=== PATIENT | male | born 1950 | race Caucasian/White ===

== ENCOUNTER 2021-11-25 11:56 | Inpatient (IN) | payer BC, MEDICARE, MEDICAID, SELFPAY ==
[2021-11-25] VITALS (11 sets, daily range): BP systolic 99–132; BP diastolic 62–121; PULSE 76–98; RESP 12–22; TEMP 36.9–37; O2SAT 93–98; BMI 19.5; BMI 21.5
--- NOTE | 2021-11-25 12:12 | NURSING ---
NO OLD EKGS
--- NOTE | 2021-11-25 12:17 | RAD_ITS ---
EXAM: XR CHEST, 2 VIEWS CLINICAL INDICATION: cough, SOB TECHNIQUE: Frontal and lateral views of the chest. This report was created using [employer] report generation technology. COMPARISON: None. FINDINGS: LUNGS AND PLEURAL SPACES: There is airspace disease in the right lower lobe. The lungs are hyperinflated. No pneumothorax. No effusion. HEART: Unremarkable. Cardiac silhouette not enlarged. MEDIASTINUM: Central airways and mediastinal contour are unremarkable. BONES/JOINTS: Unremarkable. SOFT TISSUES: Unremarkable. RAD/Chest PA and Lateral IMPRESSION: Right lower lobe airspace disease compatible with pneumonia. There is underlying pulmonary hyperinflation. Electronically Signed: Steve Cullen MD at 13:11 EDT ,
--- NOTE | 2021-11-25 12:17 | EKG12_ITS ---
Test Reason : sob Blood Pressure : / mmHG Vent. Rate : 082 BPM Atrial Rate : 082 BPM P-R Int : 152 ms QRS Dur : 078 ms QT Int : 384 ms P-R-T Axes : 052 -15 065 degrees QTc Int : 448 ms Normal sinus rhythm Normal ECG Confirmed by GI MOISE, DOMENIC ([id number]), book editor MARIA INES GARRETT ([id number]) on 11/28/2021 8:59:03 AM Referred By: Confirmed By:DOMENIC ANGELO MD
--- NOTE | 2021-11-25 12:18 | EDS_ITS ---
HPI History of Present Illness Chief Complaint: Shortness of Breath Informant: patient Narrative Narrative: Patient was referred over from Dr. Greenwood's office. Patient states that Saturday morning he started with his symptoms. That is a little over 5 days ago. He has had mild cough, occasional slight sputum production, heaviness feeling on his chest, myalgias, chills but no measured fever. He feels he has heard wheezing in the morning. Nothing really makes his symptoms better or worse. He has no travel surgery immobilization personal or family history of DVT or PE. Patient's father had heart disease but it was not until his 60s. This patient is on no meds for anything. He used to have cholesterol but stopped his meds well over a year ago. He had GERD. He denies history of high blood pressure or diabetes. He smoked for 40 some years but quit 20 years ago. He did start vaping about 8 months ago and just quit Saturday when his symptoms started. [facility] Medical History (Updated 11/25/21 @ 15:[address] Abel Flanagan MD) Hyperlipidemia Home Medications NK 11/25/21 [History Last Taken Unknown] Allergy/AdvReac Type Severity Reaction Status Date / Time No Known Allergies Allergy Verified 11/25/21 11:57 Social History Smoking Status: Never smoker [facility] ED Constitutional Constitutional ED: Reports chills; Denies fever(s) Eyes Eyes: Denies change in vision ENT ENT ED: Reports rhinorrhea; Denies sore throat Cardiovascular Cardiovascular: Reports other Details: Patient states he feels heavy on his chest like his breathing is heavy. But he denies pain pressure tearing or ripping etc. ; Denies palpitations or racing heartbeat Respiratory/Chest Respiratory/Chest: Reports cough, dyspnea, dyspnea on exertion, sputum and other Details: Patient has dyspnea. He also has occasional cough. He did bring up some light rodriguez sputum today. No hemoptysis. No pain with a deep breath. Gastrointestinal Gastrointestinal: Reports nausea and other Details: Patient has felt mild nausea ever since this started. No vomiting diarrhea or constipation or pain ; Denies abdominal pain, constipation, diarrhea, melena or vomiting Genitourinary Genitourinary ED: Denies dysuria Musculoskeletal Musculoskeletal: Reports myalgias Integumentary Denies rash Neurologic Neurologic: Denies headache(s) Endocrine Endocrinology: Denies polydipsia or polyuria Hematologic/Lymphatic Hematologic/Lymphatic: Denies easy bleeding or easy bruising Allergic/Immunologic Allergic/Immunologic ED: Denies urticaria EXAM Physical Exam Const Vital Signs: 11/25/21 11:56 11/25/21 12:20 11/25/21 12:27 Temperature 98.4 F Temperature Source Temporal Pulse Rate 91 93 Respiratory Rate 16 12 Respiratory Effort Normal Respiratory Pattern Normal Blood Pressure 132/121 H Blood Pressure Mean 124 Pulse Ox 94 Oxygen Delivery Method Room Air Room Air 11/25/21 13:35 11/25/21 14:22 Temperature Temperature Source Pulse Rate 76 86 Respiratory Rate 18 18 Respiratory Effort Respiratory Pattern Blood Pressure 117/78 109/73 Blood Pressure Mean 91 85 Pulse Ox 94 93 Oxygen Delivery Method Room Air Positive well nourished and well developed General Appearance ED: well developed and NAD HEENT Reports moist mucous membranes Eyes EOMs intact bilaterally General Eye ED: Negative for scleral icterus Neck no lymphadenopathy Resp Resp Narrative: Patient's work of breathing does look a little bit increased. But he carries on a normal conversation. Saturations are normal. There is no pain with a deep breath. I do not hear wheezing but he does have slightly distant breath sounds. He also has a few coarse breath sounds that are isolated toward the right base posteriorly. Even after deep breaths these continue. Cardio regular rate, regular rhythm and no murmurs GI non-tender, non-distended and no masses Back/Spine no CVA tenderness Extremity normal to inspection General Extremety ED: Negative for edema or tenderness General Extremity: Negative for edema Neuro oriented x3 Psych mental status grossly normal Skin no wounds and skin turgor normal Rashes: no rashes MDM MDM MDM Narrative Medical decision making narrative: Patient has a slight elevation of his white count. Hemoglobin and platelets are normal. Electrolytes show no marked abnormalities. Glucose is just minimally up at 136. Troponin and BNP are normal. X-ray shows right Patient is not hypoxic sitting still. He will fluctuate anywhere from 90 to about 93%. But when he walked him he rapidly dropped to 86% and became dyspneic. His sats came back to normal after resting. With his exertional hypoxia I think he would not do well as an outpatient. I have sent off blood cultures and lactate which are pending. Treated with Rocephin and azithromycin and I discussed the case with the hospitalist. Lab Data Attestation: I reviewed the patient's lab results. Labs: Laboratory Results - last 24 hr 11/25/21 11/25/21 11/25/21 12:15 12:15 12:15 WBC 11.7 H RBC 4.66 Hgb 14.1 Hct 43.1 MCV 92.5 MCH 30.3 MCHC 32.7 RDW Std Deviation 42.5 RDW Coeff of Kylee 12.6 Plt Count 389 MPV 9.7 Immature Gran % (Auto) 0.300 Neut % (Auto) 77.9 H Lymph % (Auto) 13.7 L [place] % (Auto) 5.8 Eos % (Auto) 2.0 Baso % (Auto) 0.3 Absolute Neuts (auto) 9.1 H Absolute Lymphs (auto) 1.60 Nucleated RBC % 0 Sodium 136 Potassium 4.5 Chloride 103 Carbon Dioxide 27.0 Anion Gap 6 BUN 16 Creatinine 1.02 Estim Creat Clear Calc 54.04 Est GFR (MDRD) Af Amer 93 Est GFR (MDRD) Non-Af 77 BUN/Creatinine Ratio 15.7 Glucose 136 H Calcium 9.1 Troponin I High Sens 5 B-Natriuretic Peptide 16.1 Radiography Diagnostic Testing: Clinical Impression(s) from Imaging Studies Chest X-Ray 11/25/21 12:17 IMPRESSION: Right lower lobe airspace disease compatible with pneumonia. There is underlying pulmonary hyperinflation. Electronically Signed: Steve Cullen MD at 13:11 EDT , EKG Initial EKG: Comments: EKG done for chest heaviness and dyspnea read by me shows normal sinus rhythm with overall rate of 82. No ventricular ectopy. No acute ST elevation depression consistent with infarct or ischemia. MN interval QRS duration and QTc is normal. Discharge Plan Dx/Rx/DC Orders Clinical Impression: Community acquired pneumonia, Hypoxia Disposition Disposition: Acute Care Hospital [facility]
[2021-11-25] MEDS: Ipratropium/Albuterol Sulfate 3 ML AMPUL.NEB INHALATION ×2 (12:24→18:55)
[2021-11-25 12:29] LABS: Absolute Neutrophil Count 9.1 X10^3/uL (2.0-7.7); Basophil# 0.03 X10^3/uL; Basophil% 0.3 % (0-1); Eosinophil# 0.24 X10^3/uL; Hematocrit 43.1 % (40-54); Hemoglobin 14.1 g/dL (13.0-16.5); Lymphocyte % 13.7 % (19-41); Mean Corp Hgb Conc 32.7 g/dL (32-36); Mean Corpuscular Hgb 30.3 pg (27.0-32.0); Mean Corpuscular Volume 92.5 fL (80-94); Mean Platelet Vol. 9.7 fl (6.2-12.0); Monocyte# 0.68 X10^3/uL; Monocyte% 5.8 % (0-10); NRBC Flagged by Analyzer 0 % (0-5); Neutrophil # 9.14 X10^3/uL (2.7-7.7); Neutrophil % 77.9 % (47-70); Platelet Count 389 K/mm3 (150-450); RBC Distribution Width CV 12.6 % (11.6-14.6); RBC Distribution Width SD 42.5 fl (35.1-43.9); Red Blood Count 4.66 M/mm3 (4.6-6.2); White Blood Count 11.7 K/mm3 (4.4-11.0)
[2021-11-25 12:42] LABS: Anion Gap 6 (5-15); BUN 16 mg/dL (7-18); BUN/Creat Ratio 15.7 RATIO (10-20); Calcium,Total 9.1 mg/dL (8.5-10.1); Chloride 103 mmol/L (98-107); Creatinine, Serum 1.02 mg/dL (0.70-1.30); EST Glomerular Filtration Rate 77 mL/min (>60); Est Glom Filt Rate - Afr Amer 93 mL/min (>60); Estimated Creatinine Clearance 54.04 ml/min; Glucose 136 mg/dL (74-106); Potassium 4.5 mmol/L (3.5-5.1); Sodium Level 136 mmol/L (136-145); Troponin-I HS 5 pg/mL (3.0-78.0)
[2021-11-25 12:49] LABS: BNP,B-Type NATRIURETIC PEPTIDE 16.1 pg/mL (0-100)
[2021-11-25] MEDS: Ceftriaxone 1 GM/50 ML BAG IV (14:48)
--- NOTE | 2021-11-25 14:58 | NURSING ---
HOSPITALIST FOR DR YOUNG
--- NOTE | 2021-11-25 15:01 | NURSING ---
MED SURG NUAMAH PNEUMONIA, HYPOXIA
--- NOTE | 2021-11-25 15:03 | PCM.HP.STD ---
[facility] - General General Date of Admission: 11/25/21 Date of Service: 11/25/21 Chief Complaint: Shortness of breath, cough?4 days HPI Narrative NUSRAT TODD, is a 71 M who presents with the above. Patient has no significant past medical history, he has been feeling fatigue ongoing for months but worse over the last 4 days. He has had a chronic cough but in the last couple of days, sputum has been dark. He denied any fever or dizziness or palpitations or chest pain. He admits to some chills. Denied any diarrhea. He has been nauseous. He denied any other sick contact. Vitals in the ED were unremarkable except for blood pressure of 132/121, pulse 91, sed rate 16, temperature 98.4 F, oxygen saturation 94% on room air. When he was ambulated in the ED, his O2 sats dropped to 88%. His RBC count is 7.7, hemoglobin 14.1, platelet count 389. CMP has been unremarkable. Bnpep 16.1, Trop 5. Lactic acid 1.5. CXR showed right lower lobe airspace. [facility] Medical History Hyperlipidemia Home Medications NK 11/25/21 [History Last Taken Unknown] Allergy/AdvReac Type Severity Reaction Status Date / Time No Known Allergies Allergy Verified 11/25/21 11:57 Family History (Updated 11/25/21 @ 16:[address] Sofia Preciado MD) Mother No problems noted. Father Heart disease Social History (Updated 11/25/21 @ 16:[address] Sofia Preciado MD) household members: family Smoking Status: Never smoker alcohol intake: never substance use type: does not use ROS ROS Narrative Constitutional: Reports: Malaise, Weakness, Fatigue, chills. Denies: Anorexia, Fever, Night Sweats, Weight Change Eyes: Denies: Blurred vision, Cataracts, Conjunctivae Inflammation, Pain, Redness, Vision Change HEENT: Denies: Difficulty Hearing, Difficulty Swallowing, Head Aches, Hearing Changes, Sinus Congestion, Sinus Drainage Cardiovascular: Denies: Chest Pain, Orthopnea, Palpitations Respiratory: See HPI Gastrointestinal: Denies: Abdominal Pain, Nausea, Vomiting Genitourinary: Denies: Dysuria Musculoskeletal: Denies: Joint Pain, Joint stiffness, Joint swelling, Joint Tenderness Skin: Denies: Rash, Wounds Neurological: Denies: Numbness, Tingling, Focal weakness Vital Signs Vital Signs Vital Signs: 11/25/21 11:56 11/25/21 12:20 11/25/21 12:27 Temperature 98.4 F Temperature Source Temporal Pulse Rate 91 93 Respiratory Rate 16 12 Respiratory Effort Normal Respiratory Pattern Normal Blood Pressure 132/121 H Blood Pressure Mean 124 Pulse Ox 94 Oxygen Delivery Method Room Air Room Air 11/25/21 13:35 11/25/21 14:22 Temperature Temperature Source Pulse Rate 76 86 Respiratory Rate 18 18 Respiratory Effort Respiratory Pattern Blood Pressure 117/78 109/73 Blood Pressure Mean 91 85 Pulse Ox 94 93 Oxygen Delivery Method Room Air Weight Weight: 56.699 kg Body Mass Index (BMI) 19.5 Physical Exam Narrative Physical exam: General: Alert, Oriented x3, Cooperative, appears unwell, on 2 L of oxygen HEENT: Atraumatic Oral: Moist Mucosa Neck: Supple Lungs: Diminished to auscultation, crackles at the right lower lobe Cardiovascular: HS I+II, regular, no murmurs Abdomen: Bowel Sounds Present, Soft, Non Tender Extremities: No edema Skin: No rashes, No breakdown Neurological: Grossly intact Psych/Mental Status: Appropriate Results Lab / Micro Data Result Diagrams: 11/25/21 12:15 11/25/21 12:15 Labs: Laboratory Results - last 24 hr 11/25/21 12:15: WBC 11.7 H, RBC 4.66, Hgb 14.1, Hct 43.1, MCV 92.5, MCH 30.3, MCHC 32.7, RDW Std Deviation 42.5, RDW Coeff of Kylee 12.6, Plt Count 389, MPV 9.7, Immature Gran % (Auto) 0.300, Neut % (Auto) 77.9 H, Lymph % (Auto) 13.7 L, [place] % (Auto) 5.8, Eos % (Auto) 2.0, Baso % (Auto) 0.3, Absolute Neuts (auto) 9.1 H, Absolute Lymphs (auto) 1.60, Nucleated RBC % 0 11/25/21 12:15: Sodium 136, Potassium 4.5, Chloride 103, Carbon Dioxide 27.0, Anion Gap 6, BUN 16, Creatinine 1.02, Estim Creat Clear Calc 54.04, Est GFR (MDRD) Af Amer 93, Est GFR (MDRD) Non-Af 77, BUN/Creatinine Ratio 15.7, Glucose 136 H, Calcium 9.1, Troponin I High Sens 5 11/25/21 12:15: B-Natriuretic Peptide 16.1 Micro: Microbiology 11/25/21 12:15 Nasal Secretion SARS-CoV-2 & FLU Antigen (Rapid) - Final Radiology Impression Chest X-Ray 11/25/21 12:17 IMPRESSION: Right lower lobe airspace disease compatible with pneumonia. There is underlying pulmonary hyperinflation. Electronically Signed: Steve Cullen MD at 13:11 EDT , Assessment & Plan Assessment/Plan (1) Community acquired pneumonia: (2) Hypoxia: PLAN: Plan 1. Acute hypoxia secondary to acute right lower lobe pneumonia, likely secondary to suspected gram positive organism Patient is on 2 L of oxygen, patient appears unwell, in mild respiratory distress, with use of accessory muscles of respiration Chest x-ray shows right lower lobe pneumonia Started on IV ceftriaxone and azithromycin, continue same Check urine Legionella and strep coccal antigen as well as sputum culture Incentive spirometer breathing treatments as needed 2. Hyperlipidemia, not on treatment, will check lipid profiles in a.m. 3. DVT prophylaxis?heparin subcu 4. I discussed and explained in details the various types of CODE STATUS-full code, DNR CCA, DNR CC. Patient chose to be full code Time spent discussing CODE STATUS 16 minutes Charges/Coding Visit Charges Inpatient E&M: 01159 Init Hosp L3 Procedures Hospitalists Procedures: 82344 Advncd Care Plan 30 Min
[2021-11-25 15:10] LABS: Lactic Acid 1.5 mmol/L (0.4-1.9)
[2021-11-25] MEDS: Ondansetron 4 MG/2 ML Vial IV (16:19)
[2021-11-25] MEDS: 0.9% Saline Lock 10 ML Syringe IV (16:19)
[2021-11-25] MEDS: 0.9% Normal Saline 1,000 ML 75 ML IV (16:31)
[2021-11-25 16:50] LABS: Thyroid Stim Hormone (TSH) 0.47 uIU/mL (0.358-3.74)
[2021-11-25 18:10] LABS: Hemoglobin A1c 5.8 % (3.8-5.6)
[2021-11-25] MEDS: Heparin Injection (Vial) 5,000 UNIT/ML VIAL 5000 UNIT SC (21:32)
[2021-11-26] VITALS (9 sets, daily range): BP systolic 98–110; BP diastolic 59–71; PULSE 58–88; RESP 16–20; TEMP 36.6–37.3; O2SAT 93–100
[2021-11-26] MEDS: 0.9% Saline Lock 10 ML Syringe IV ×3 (06:06→21:55)
[2021-11-26 06:28] LABS: Absolute Lymphocyte Count 1.77 X10^3/uL (0.83-4.51); Absolute Neutrophil Count 5.5 X10^3/uL (2.0-7.7); Basophil# 0.03 X10^3/uL; Basophil% 0.4 % (0-1); Eosinophil# 0.18 X10^3/uL; Eosinophils% 2.3 % (0-5); Hematocrit 35.6 % (40-54); Hemoglobin 11.9 g/dL (13.0-16.5); Lymphocyte # 1.77 X10^3/ul (0.83-4.51); Lymphocyte % 22.2 % (19-41); Mean Corp Hgb Conc 33.4 g/dL (32-36); Mean Corpuscular Hgb 30.3 pg (27.0-32.0); Mean Corpuscular Volume 90.6 fL (80-94); Mean Platelet Vol. 10.1 fl (6.2-12.0); Monocyte% 6.3 % (0-10); NRBC Flagged by Analyzer 0 % (0-5); Neutrophil # 5.47 X10^3/uL (2.7-7.7); Neutrophil % 68.5 % (47-70); Platelet Count 292 K/mm3 (150-450); RBC Distribution Width CV 12.5 % (11.6-14.6); RBC Distribution Width SD 41.8 fl (35.1-43.9); Red Blood Count 3.93 M/mm3 (4.6-6.2)
[2021-11-26 07:02] LABS: ALB/GLOB Ratio 0.7 RATIO (0.9-2.4); AST(SGOT) 17 U/L (15-37); Alanine Aminotransfer ALT/SGPT 17 U/L (16-61); Albumin, Serum 2.5 g/dL (3.2-5.0); Alkaline Phosphatase 62 U/L (45-117); Anion Gap 7 (5-15); BUN 11 mg/dL (7-18); BUN/Creat Ratio 13.9 RATIO (10-20); Calcium,Total 8.4 mg/dL (8.5-10.1); Chloride 107 mmol/L (98-107); Cholesterol 123 mg/dL (200); Creatinine, Serum 0.79 mg/dL (0.70-1.30); EST Glomerular Filtration Rate 103 mL/min (>60); Est Glom Filt Rate - Afr Amer 125 mL/min (>60); Estimated Creatinine Clearance 60.73 ml/min; Globulin 3.6 g/dL (2.2-4.2); Glucose 104 mg/dL (74-106); High Density Lipoprotein 38 mg/dL; Potassium 3.9 mmol/L (3.5-5.1); Protein, Total 6.1 g/dL (6.4-8.2); Sodium Level 138 mmol/L (136-145); Triglycerides 69 mg/dL; Very Low Density Lipoprotein 14 mg/dL (5-40)
[2021-11-26] MEDS: Ipratropium/Albuterol Sulfate 3 ML AMPUL.NEB INHALATION ×4 (07:05→19:10)
--- NOTE | 2021-11-26 08:09 | PCM.PN.HOSP ---
Subjective Subjective Follow-up on pneumonia: Patient was seen and examined. He looks improved. He is off oxygen. Objective Data Objective Data Vital Signs: Vital Signs Temp Pulse Resp BP Pulse Ox O2 Del Method O2 Flow Rate 98.6 F 58 L 18 110/64 94 Nasal Cannula 1.5 11/26/21 02:28 11/26/21 07:05 11/26/21 07:05 11/26/21 02:28 11/26/21 07:05 11/26/21 07:05 11/26/21 07:05 Oxygen Flow Rate (L/min) 1.5 Oxygen Delivery Method Nasal Cannula Weight: 62.46 kg Body Mass Index (BMI) 21.5 Intake & Output: Intake and Output for Last 24 Hours 11/24/21 11/25/21 11/26/21 23:59 23:59 23:59 Intake Total 995 / 995 1000 / 1000 Output Total 1250 / 1250 Balance 995 / 445 -250 / -250 Lab / Micro Data Result Diagrams: 11/26/21 05:47 11/26/21 05:47 Labs: Laboratory Results - last 24 hr 11/25/21 12:15: WBC 11.7 H, RBC 4.66, Hgb 14.1, Hct 43.1, MCV 92.5, MCH 30.3, MCHC 32.7, RDW Std Deviation 42.5, RDW Coeff of Kylee 12.6, Plt Count 389, MPV 9.7, Immature Gran % (Auto) 0.300, Neut % (Auto) 77.9 H, Lymph % (Auto) 13.7 L, [place] % (Auto) 5.8, Eos % (Auto) 2.0, Baso % (Auto) 0.3, Absolute Neuts (auto) 9.1 H, Absolute Lymphs (auto) 1.60, Nucleated RBC % 0 11/25/21 12:15: Sodium 136, Potassium 4.5, Chloride 103, Carbon Dioxide 27.0, Anion Gap 6, BUN 16, Creatinine 1.02, Estim Creat Clear Calc 54.04, Est GFR (MDRD) Af Amer 93, Est GFR (MDRD) Non-Af 77, BUN/Creatinine Ratio 15.7, Glucose 136 H, Calcium 9.1, Troponin I High Sens 5 11/25/21 12:15: B-Natriuretic Peptide 16.1 11/25/21 12:15: TSH 0.47 11/25/21 14:42: Lactic Acid 1.5 11/25/21 17:38: Hemoglobin A1c 5.8 H 11/26/21 05:47: WBC 8.0, RBC 3.93 L, Hgb 11.9 L, Hct 35.6 L, MCV 90.6, MCH 30.3, MCHC 33.4, RDW Std Deviation 41.8, RDW Coeff of Kylee 12.5, Plt Count 292, MPV 10.1, Immature Gran % (Auto) 0.300, Neut % (Auto) 68.5, Lymph % (Auto) 22.2, [place] % (Auto) 6.3, Eos % (Auto) 2.3, Baso % (Auto) 0.4, Absolute Neuts (auto) 5.5, Absolute Lymphs (auto) 1.77, Nucleated RBC % 0 11/26/21 05:47: Sodium 138, Potassium 3.9, Chloride 107, Carbon Dioxide 24.0, Anion Gap 7, BUN 11, Creatinine 0.79, Estim Creat Clear Calc 60.73, Est GFR (MDRD) Af Amer 125, Est GFR (MDRD) Non-Af 103, BUN/Creatinine Ratio 13.9, Glucose 104, Calcium 8.4 L, Total Bilirubin 0.30, AST 17, ALT 17, Alkaline Phosphatase 62, Total Protein 6.1 L, Albumin 2.5 L, Globulin 3.6, Albumin/Globulin Ratio 0.7 L, Triglycerides 69, Cholesterol 123, LDL Cholesterol 71, VLDL Cholesterol 14, HDL Cholesterol 38 L Micro: Microbiology 11/25/21 12:15 Nasal Secretion SARS-CoV-2 & FLU Antigen (Rapid) - Final Radiography Diagnostic Testing: Radiology Impression Chest X-Ray 11/25/21 12:17 IMPRESSION: Right lower lobe airspace disease compatible with pneumonia. There is underlying pulmonary hyperinflation. Electronically Signed: Steve Cullen MD at 13:11 EDT , Physical Exam Narrative Physical exam: General: Alert, Oriented x3, Cooperative, appears improved HEENT: Atraumatic Oral: Moist Mucosa Neck: Supple Lungs: Diminished to auscultation, crackles at the right lower lobe++ Cardiovascular: HS I+II, regular, no murmurs Abdomen: Bowel Sounds Present, Soft, Non Tender Extremities: No edema Skin: No rashes, No breakdown Neurological: Grossly intact Psych/Mental Status: Appropriate Assessment & Plan Assessment/Plan (1) Community acquired pneumonia: (2) Hypoxia: PLAN: Plan 1. Acute hypoxia secondary to acute right lower lobe pneumonia, likely secondary to suspected gram positive organism Hypoxia appears resolved; patient has not been ambulated to check for oxygen requirement Clinical exam shows significant crackles in the right lower lobe; patient will be better served by getting 1 more day of antibiotics Chest x-ray shows right lower lobe pneumonia Continue on IV ceftriaxone and azithromycin, continue same Urine Legionella and strep coccal antigen as well as sputum culture are pending Incentive spirometer and breathing treatments as needed 2. Hyperlipidemia, lipid profile has been unremarkable with total cholesterol 133, triglycerides 69, LDL 71, HDL 38 3. DVT prophylaxis?heparin subcu Charges/Coding Visit Charges Inpatient E&M: 92089 Subs Hosp L2
[2021-11-26] MEDS: Heparin Injection (Vial) 5,000 UNIT/ML VIAL 5000 UNIT SC ×2 (09:51→21:53)
[2021-11-26] MEDS: Ceftriaxone 1 GM/50 ML BAG IV (12:06)
[2021-11-27 05:40] LABS: Absolute Lymphocyte Count 1.51 X10^3/uL (0.83-4.51); Absolute Neutrophil Count 5.6 X10^3/uL (2.0-7.7); Basophil# 0.03 X10^3/uL; Basophil% 0.4 % (0-1); Eosinophil# 0.28 X10^3/uL; Eosinophils% 3.5 % (0-5); Hemoglobin 12.1 g/dL (13.0-16.5); Lymphocyte # 1.51 X10^3/ul (0.83-4.51); Lymphocyte % 18.9 % (19-41); Mean Corp Hgb Conc 32.7 g/dL (32-36); Mean Corpuscular Hgb 30.2 pg (27.0-32.0); Mean Corpuscular Volume 92.3 fL (80-94); Mean Platelet Vol. 9.9 fl (6.2-12.0); Monocyte# 0.56 X10^3/uL; NRBC Flagged by Analyzer 0 % (0-5); Neutrophil # 5.59 X10^3/uL (2.7-7.7); Neutrophil % 69.7 % (47-70); Platelet Count 305 K/mm3 (150-450); RBC Distribution Width CV 12.6 % (11.6-14.6); RBC Distribution Width SD 43.2 fl (35.1-43.9); Red Blood Count 4.01 M/mm3 (4.6-6.2)
[2021-11-27 05:52] VITALS: BP 116/73; PULSE 74; RESP 18; TEMP 37.3; O2SAT 93
[2021-11-27 06:13] LABS: ALB/GLOB Ratio 0.7 RATIO (0.9-2.4); AST(SGOT) 17 U/L (15-37); Alanine Aminotransfer ALT/SGPT 20 U/L (16-61); Albumin, Serum 2.6 g/dL (3.2-5.0); Alkaline Phosphatase 64 U/L (45-117); Anion Gap 3 (5-15); BUN 9 mg/dL (7-18); BUN/Creat Ratio 11.5 RATIO (10-20); Calcium,Total 8.6 mg/dL (8.5-10.1); Chloride 106 mmol/L (98-107); Creatinine, Serum 0.78 mg/dL (0.70-1.30); EST Glomerular Filtration Rate 104 mL/min (>60); Est Glom Filt Rate - Afr Amer 126 mL/min (>60); Estimated Creatinine Clearance 60.76 ml/min; Globulin 3.7 g/dL (2.2-4.2); Glucose 102 mg/dL (74-106); Potassium 3.9 mmol/L (3.5-5.1); Protein, Total 6.3 g/dL (6.4-8.2); Sodium Level 138 mmol/L (136-145)
[2021-11-27 07:03] VITALS: PULSE 93; RESP 18; O2SAT 92
[2021-11-27] MEDS: Ipratropium/Albuterol Sulfate 3 ML AMPUL.NEB INHALATION ×2 (07:03→10:56)
--- NOTE | 2021-11-27 07:59 | PN.HOSP_ITS ---
Subjective Subjective Patient is a 71-year-old gentleman who presented with shortness of breath and chills found to have right lower lobe pneumonia Objective Data Objective Data Vital Signs: Vital Signs Temp Pulse Resp BP Pulse Ox O2 Del Method O2 Flow Rate 99.1 F 93 18 116/73 92 Room Air 1.5 11/27/21 05:52 11/27/21 07:03 11/27/21 07:03 11/27/21 05:52 11/27/21 07:03 11/27/21 07:03 11/26/21 07:05 Oxygen Flow Rate (L/min) 1.5 Oxygen Delivery Method Room Air Weight: 62.5 kg Body Mass Index (BMI) 21.5 Intake & Output: Intake and Output for Last 24 Hours 11/25/21 11/26/21 11/27/21 23:59 23:59 23:59 Intake Total 995 / 995 3825 / 3825 Output Total 1250 / 1250 Balance 995 / 445 2575 / 2575 Medical Nutrition Assessment Dietitian: Malnutrition Criteria Met Start: 11/26/21 11:44 Freq: Status: Active Protocol: Document 11/26/21 11:44 RMA (Rec: 11/26/21 11:44 RMA [id number]) Nutrition Malnutrition Evidence of Malnutrition Exists Yes Malnutrition (severe): Social/Behavioral/ Environmental Evidenced By Suboptimal Energy Intake ( Moderate),Weight Loss (Severe) Clinical Problem Acute Disease or Injury Related Malnutrition Etiology Moderate to severe protein- calorie malnutrition in the context of social circumstance related to stress/depression Signs/Symptoms as evidenced by wt loss~10% x past 8 months and oral intake meeting less than 50-75% estimated nutrition needs x past 6-8 months Status Active Problem Recommendation Dietitian Recommendations/Changes Continue regular diet for now and restrict carbohydrates as needed given HgbA1C 5.8%. Will add vanilla magic cup BID w/ lunch and dinner and 240 ml apple ensure clear w/ breakfast. Adjust ONS as needed to prevent further weight loss and optimize intake at meals. Lab / Micro Data Result Diagrams: 11/27/21 05:13 11/27/21 05:13 Labs: Laboratory Results - last 24 hr 11/27/21 05:13: WBC 8.0, RBC 4.01 L, Hgb 12.1 L, Hct 37.0 L, MCV 92.3, MCH 30.2, MCHC 32.7, RDW Std Deviation 43.2, RDW Coeff of Kylee 12.6, Plt Count 305, MPV 9.9, Immature Gran % (Auto) 0.500, Neut % (Auto) 69.7, Lymph % (Auto) 18.9 L, [place] % (Auto) 7.0, Eos % (Auto) 3.5, Baso % (Auto) 0.4, Absolute Neuts (auto) 5.6, Absolute Lymphs (auto) 1.51, Nucleated RBC % 0 11/27/21 05:13: Sodium 138, Potassium 3.9, Chloride 106, Carbon Dioxide 29.0, Anion Gap 3 L, BUN 9, Creatinine 0.78, Estim Creat Clear Calc 60.76, Est GFR (MDRD) Af Amer 126, Est GFR (MDRD) Non-Af 104, BUN/Creatinine Ratio 11.5, Glucose 102, Calcium 8.6, Total Bilirubin 0.20, AST 17, ALT 20, Alkaline Phosphatase 64, Total Protein 6.3 L, Albumin 2.6 L, Globulin 3.7, Albumin/Globulin Ratio 0.7 L Micro: Microbiology 11/25/21 14:45 Blood Culture (Wb) - Anticubital Left Blood Culture - Preliminary No growth in 48 hours. 11/25/21 14:42 Blood Culture (Wb) - Anticubital Right Blood Culture - Preliminary No growth in 48 hours. 11/25/21 18:30 Urine Catheter - Barth Legionella Antigen - Final 11/25/21 18:30 Urine Catheter - Barth Streptococcus pneumoniae Antigen (M - Final 11/25/21 12:15 Nasal Secretion SARS-CoV-2 & FLU Antigen (Rapid) - Final Physical Exam Narrative GENERAL: cooperative HEENT: Atraumatic; EYES; Anicteric, Normal Conjunctiva NECK; supple, normal thyroid, RESPIRATORY: Diminished to auscultation CARDIOVASCULAR: Regular S1 S2, GI: soft, normoactive bowel sounds, : No Renal angle tenderness; EXTREMITIES: No edema, no clubbing, MUSCULOSKELETAL: no muscle wasting NEURO: Awake; no lateralizing signs. SKIN: No Rash PSYCH; Flat affect Assessment & Plan Assessment/Plan (1) Community acquired pneumonia: (2) Hypoxia: PLAN: Plan Patient is a 71-year-old gentleman who presented with shortness of breath and chills found to have right lower lobe pneumonia 1. Pneumonia - Suspected to be secondary to streptococcal pneumonia, Blood and sputum cultures sent. Patient placed on Rocephin and Zithromax and placed on oxygen titrated to keep Pulse Ox greater than 90 2. Dyslipidemia -Patient is on statin therapy, continued at home dose 3. DVT prophylaxis ? SC heparin Charges/Coding Visit Charges Inpatient E&M: 87311 Subs Hosp L2
[2021-11-27 08:00] VITALS: BP 118/77; PULSE 84; RESP 16; TEMP 36.8; O2SAT 93
--- NOTE | 2021-11-27 09:09 | DS.PCM_ITS ---
Providers Date of Admission: 11/25/21 Primary Care Physician: Dr. Darlyn Greenwood MD Reason For Visit: PNEUMONIA Diagnosis Discharge Diagnosis (1) Community acquired pneumonia: Status: Acute Code(s): J18.9 - Pneumonia, unspecified organism (2) Hypoxia: Status: Acute Code(s): R09.02 - Hypoxemia Plan Patient is a 71-year-old gentleman who presented with shortness of breath and chills found to have right lower lobe pneumonia 1. Pneumonia - Suspected to be secondary to streptococcal pneumonia, Blood and sputum cultures sent. Patient placed on Rocephin and Zithromax and placed on oxygen titrated to keep Pulse Ox greater than 90 2. Dyslipidemia -Patient is on statin therapy, continued at home dose 3. DVT prophylaxis ? SC heparin Medications at Discharge Home Medications albuterol sulfate 90 mcg/actuation aerosol inhaler 2 puff inhalation Q6H PRN shortness of breath or wheezing #8.5 grams 11/27/21 azithromycin 500 mg tablet (Zithromax) 500 mg PO DAILY 3 days #3 tabs 11/27/21 cefdinir 300 mg capsule 300 mg PO BID #10 caps 11/27/21 Hospital Course Summary of Care Provided Minutes Spent on Discharge: 35 Hospital Course: Patient is a 71-year-old gentleman who presented with shortness of breath and chills found to have right lower lobe pneumonia 1.? Pneumonia - Suspected to be secondary to streptococcal pneumonia,? Blood and sputum cultures sent.? Patient placed on Rocephin and Zithromax and placed on oxygen titrated to keep Pulse Ox greater than 90 2.? Dyslipidemia -Patient is on statin therapy, continued at home dose 3.? DVT prophylaxis ? SC heparin Physical Exam Narrative GENERAL: cooperative HEENT: Atraumatic; EYES; Anicteric, Normal Conjunctiva NECK; supple, normal thyroid, RESPIRATORY: Diminished to auscultation CARDIOVASCULAR: Regular S1 S2, GI: soft, normoactive bowel sounds, : No Renal angle tenderness; EXTREMITIES: No edema, no clubbing, MUSCULOSKELETAL: no muscle wasting NEURO: Awake; no lateralizing signs. SKIN: No Rash PSYCH; Flat affect Medical Records Data Medical Nutrition Assessment Dietitian: Malnutrition Criteria Met Start: 11/26/21 11:44 Freq: Status: Active Protocol: Document 11/26/21 11:44 RMA (Rec: 11/26/21 11:44 RMA [id number]) Nutrition Malnutrition Evidence of Malnutrition Exists Yes Malnutrition (severe): Social/Behavioral/ Environmental Evidenced By Suboptimal Energy Intake ( Moderate),Weight Loss (Severe) Clinical Problem Acute Disease or Injury Related Malnutrition Etiology Moderate to severe protein- calorie malnutrition in the context of social circumstance related to stress/depression Signs/Symptoms as evidenced by wt loss~10% x past 8 months and oral intake meeting less than 50-75% estimated nutrition needs x past 6-8 months Status Active Problem Recommendation Dietitian Recommendations/Changes Continue regular diet for now and restrict carbohydrates as needed given HgbA1C 5.8%. Will add vanilla magic cup BID w/ lunch and dinner and 240 ml apple ensure clear w/ breakfast. Adjust ONS as needed to prevent further weight loss and optimize intake at meals. Weight / BMI Weight Weight: 62.5 kg Body Mass Index (BMI) 21.5 ABG / Lab / Microbiology Data Result Diagrams: 11/27/21 05:13 11/27/21 05:13 Laboratory: Laboratory Results - last 24 hr 11/27/21 05:13: WBC 8.0, RBC 4.01 L, Hgb 12.1 L, Hct 37.0 L, MCV 92.3, MCH 30.2, MCHC 32.7, RDW Std Deviation 43.2, RDW Coeff of Kylee 12.6, Plt Count 305, MPV 9.9, Immature Gran % (Auto) 0.500, Neut % (Auto) 69.7, Lymph % (Auto) 18.9 L, [place] % (Auto) 7.0, Eos % (Auto) 3.5, Baso % (Auto) 0.4, Absolute Neuts (auto) 5.6, Absolute Lymphs (auto) 1.51, Nucleated RBC % 0 11/27/21 05:13: Sodium 138, Potassium 3.9, Chloride 106, Carbon Dioxide 29.0, Anion Gap 3 L, BUN 9, Creatinine 0.78, Estim Creat Clear Calc 60.76, Est GFR (MDRD) Af Amer 126, Est GFR (MDRD) Non-Af 104, BUN/Creatinine Ratio 11.5, Glucose 102, Calcium 8.6, Total Bilirubin 0.20, AST 17, ALT 20, Alkaline Olivia sphatase 64, Total Protein 6.3 L, Albumin 2.6 L, Globulin 3.7, Albumin/Globulin Ratio 0.7 L Microbiology: Microbiology 11/25/21 14:45 Blood Culture (Wb) - Anticubital Left Blood Culture - Preliminary No growth in 48 hours. 11/25/21 14:42 Blood Culture (Wb) - Anticubital Right Blood Culture - Preliminary No growth in 48 hours. 11/25/21 18:30 Urine Catheter - Barth Legionella Antigen - Final 11/25/21 18:30 Urine Catheter - Barth Streptococcus pneumoniae Antigen (M - Final 11/25/21 12:15 Nasal Secretion SARS-CoV-2 & FLU Antigen (Rapid) - Final D/C Instructions Discharge Diet: No restrictions Discharge Activity: Return to Normal Activity Call your doctor if you observe: Fever of 101 or Higher, Shortness of breath, Fainting spells and Chest pain Meaningful Use Info Meaningful Use Diagnoses (Choose all that apply): None applicable Discharge Plan Admission Admit Date/Time: 11/25/21 14:59 Attending Provider: Lloyd Belle Primary Care Provider: Darlyn Greenwood Consulting Providers: Sofia Preciado Discharge Orders/Prescriptions Prescriptions: New cefdinir 300 mg capsule 300 mg PO BID Qty: 10 0RF azithromycin [Zithromax] 500 mg tablet 500 mg PO DAILY 3 Days Qty: 3 0RF albuterol sulfate 90 mcg/actuation HFA aerosol inhaler 2 puff inhalation Q6H PRN (Reason: shortness of breath or wheezing) Qty: 8.5 0RF Referrals / Follow Up: Darlyn Greenwood MD [Primary Care Provider] - Within 2 Weeks Disposition Disposition (needs filled in before D/C Order can be placed): Home, Self Care Charges/Coding Visit Charges Inpatient E&M: 18644 Disch Hosp
[2021-11-27] MEDS: Ceftriaxone 1 GM/50 ML BAG IV (09:49)
[2021-11-27] MEDS: 0.9% Saline Lock 10 ML Syringe IV (09:49)
--- NOTE | 2021-11-27 10:35 | CASEMGMT ---
RN [facility] Face to Face with patient for initial transition planning/care coordination assessment. RN CM introduced self and role at [facility]. Patient lying in bed, alert and oriented. Patient willing to participate in assessment and is able to answer all questions appropriately. Care providers, pharmacy, and demographics verified. Patient wishes to discharge home, denies need for home health at this time. Patient states he has no further needs or concerns at this time. CM to follow for discharge planning needs that may arise. PCP: Timo Specialists: none Preferred Pharmacy: [facility] Insurance: [employer] Prescription Benefit: yes Living Will/HPOA: none LNOK: son Living Arrangements: Patient lives with son in a single story home with 1 step and railing to enter the home. Patient states he is independent at home. Transportation: self, son DME/HHC: Patient states he has shower chair and grab bars at home. No previous HHC or SNF. Disposition Plan: Patient to discharge home with family support and follow-up plans in place. Kortney MIRANDA, RN, CM
[2021-11-27 10:56] VITALS: PULSE 85; RESP 18; O2SAT 92
--- NOTE | 2021-11-27 12:10 | PHA.DC.MC ---
Pharmacy Service has performed discharge medication reconciliation and counseling for this patient. 1. AZITHROMYCIN 500MG PO DAILY X 3 DAYS 2. CEFDINIR 300MG PO BID X 5 DAYS 3. ALBUTEROL INHALER 2PUFFS Q6H PRN SOB/WHEEZING The patient's discharge medication list was reviewed for discrepancies and discrepancies were resolved. Home Medications albuterol sulfate 90 mcg/actuation aerosol inhaler 2 puff inhalation Q6H PRN shortness of breath or wheezing #8.5 grams 11/27/21 azithromycin 500 mg tablet (Zithromax) 500 mg PO DAILY 3 days #3 tabs 11/27/21 cefdinir 300 mg capsule 300 mg PO BID #10 caps 11/27/21 The patient was counseled on the following discharge medications and changes in medications for homegoing were reviewed. The Reason for Use, instructions for use, and potential side effects were reviewed for all new medications. The patient's questions regarding all of their medications were answered. The patient was able to verbally demonstrate an understanding of their discharge medications.
== END 2021-11-27 12:24 | disposition home or self-care (01) | DRG 194 ==
LOC: ED 15:02 → MS3 15:20
PROVIDERS: Admitting Provider Internal Medicine; Emergency Provider Emergency Medicine; PCP Internal Medicine; Visit Provider Internal Medicine
DX: J15.4 Pneumonia due to other streptococci (principal); E44.0 Moderate protein-calorie malnutrition; E78.5 Hyperlipidemia, unspecified; R09.02 Hypoxemia; Z68.21 Body mass index [BMI] 21.0-21.9, adult; Z79.899 Other long term (current) drug therapy; Z87.891 Personal history of nicotine dependence
CPT/HCPCS: 36415; 71046; 80048; 80053; 80061; 83036; 83605; 83880; 84443; 84484; 85025; 87040; 87070; 87205; 87428; 87449; 93005; 94640; 94762; 97802; 99251; 99285; J7030; A4216; G0463; J2405

== ENCOUNTER 2022-06-01 07:43 | Emergency (ER) | payer BC, MEDICARE, MEDICAID, SELFPAY ==
[2022-06-01 07:44] VITALS: BP 135/78; PULSE 82; RESP 17; TEMP 35.9; O2SAT 97; BMI 21.5
--- NOTE | 2022-06-01 08:05 | ED.VIS.DYS ---
HPI History of Present Illness Chief Complaint: Shortness of Breath Informant: patient Onset/Context/Timing Onset: Days (3) Context: gradual Timing: Continuous Quality: Positive for Dyspnea on exertion Worsened by: Exertion Relieved by: Nothing Associated Symptoms cough, rhinorrhea, sore throat and yellow sputum; Negative for ear pain, fever, chills or sweats Narrative Narrative: Patient presents with shortness of breath that has been getting worse over the last 3 days. Patient states his breathing is worse with exertion. Patient states nothing makes it better. Patient states he has been coughing up some yellow sputum. Patient states this is similar to the symptoms he had when he had pneumonia. Patient also admits to a sore throat and rhinorrhea. Patient admits to some pain in his chest but only with coughing. Patient denies any fevers or chills. Patient states he took his temperature this morning and it was 99.1. PE Risk Factors: Negative for Cancer, OCP + Smoking + > 35, Prior DVT or PE, Recent immobilization, Recent surgery or Recent travel [facility] Medical History (Updated 06/01/22 @ 09:[address] Issac Knight DO) Hyperlipidemia Home Medications albuterol sulfate 90 mcg/actuation aerosol inhaler 2 puff inhalation Q6H PRN shortness of breath or wheezing #8.5 grams 11/27/21 [Rx Last Taken Unknown] Allergy/AdvReac Type Severity Reaction Status Date / Time No Known Allergies Allergy Verified 06/01/22 07:43 Family History (Updated 11/25/21 @ 16:[address] Sofia Preciado MD) Mother No problems noted. Father Heart disease Surgical History Hx of shoulder surgery Social History (Updated 06/01/22 @ 08:[address] Issac Knight DO) household members: family Smoking Status: Former smoker alcohol intake: never substance use type: does not use ROS ROS ED Constitutional Constitutional ED: Denies chills or fever(s) Eyes Eyes: Denies blurry vision or change in vision ENT ENT ED: Reports rhinorrhea and sore throat Cardiovascular Cardiovascular: Reports chest pain; Denies palpitations Respiratory/Chest Respiratory/Chest: Reports cough and dyspnea Gastrointestinal Gastrointestinal: Denies nausea or vomiting Genitourinary Genitourinary ED: Denies dysuria or hematuria Musculoskeletal Musculoskeletal: Reports back pain and neck pain Integumentary Denies abscess or rash Neurologic Neurologic: Reports headache(s); Denies weakness Allergic/Immunologic Allergic/Immunologic ED: Denies mouth swelling or urticaria EXAM Physical Exam Const Vital Signs: 06/01/22 07:44 06/01/22 07:57 06/01/22 08:31 Temperature 96.6 F L Temperature Source Temporal Pulse Rate 82 82 Respiratory Rate 17 18 Respiratory Effort Short of Breath Respiratory Depth Normal Respiratory Pattern Normal Blood Pressure 135/78 H Blood Pressure Mean 97 Pulse Ox 97 Oxygen Delivery Method Room Air Room Air 06/01/22 08:31 Temperature Temperature Source Pulse Rate Respiratory Rate 18 Respiratory Effort Normal Respiratory Depth Respiratory Pattern Blood Pressure Blood Pressure Mean Pulse Ox 99 Oxygen Delivery Method Room Air Positive well nourished and well developed General Appearance ED: well developed HEENT Reports moist mucous membranes Neck supple and no JVD Resp normal respiratory effort Auscultation: diminished lung sounds diffuse Cardio regular rate and regular rhythm GI normal to inspection, nondistended, normoactive bowel sounds and non-tender Palpation: soft Extremity normal to inspection General Extremety ED: Negative for edema or tenderness General Extremity: Negative for edema Neuro oriented x3, CN's II-XII intact bilaterally and no sensory deficits noted Sensorium / Orientation: alert Motor Exam: strength 5/5 throughout Psych mental status grossly normal Skin no rashes or lesions noted MDM MDM MDM Narrative Medical decision making narrative: PA and lateral chest x-ray was obtained. There are 2 views. On my interpretation, lung elias are hyperinflated but clear. There is normal cardiac silhouette. Bony thorax is normal. There is no acute process noted. Radiologist also interpreted the x-ray and agrees. CBC was obtained and was reviewed. There is no acute abnormality noted. Comprehensive metabolic profile was obtained and was reviewed. Glucose was 108. The remainder was within normal limits. COVID-19 rapid antigen was obtained and was negative. Influenza A and influenza B rapid antigens were obtained and were negative. Patient was given a DuoNeb aerosol here. Patient is feeling better on reevaluation. Patient states he has inhalers at home. Patient was instructed to use these as needed. Patient does not need a prescription for refill on his inhaler. Patient was instructed to follow-up with his primary care physician in 5 to 7 days. Patient understood and was agreeable with the plan. All questions were answered. Lab Data Attestation: I reviewed the patient's lab results. Labs: Laboratory Results - last 24 hr 06/01/22 06/01/22 08:10 08:18 WBC 11.0 RBC 4.62 Hgb 14.1 Hct 42.0 MCV 90.9 MCH 30.5 MCHC 33.6 RDW Std Deviation 45.0 H RDW Coeff of Kylee 13.4 Plt Count 242 MPV 10.0 Immature Gran % (Auto) 0.300 Neut % (Auto) 78.5 H Lymph % (Auto) 13.7 L [place] % (Auto) 5.4 Eos % (Auto) 1.8 Baso % (Auto) 0.3 Absolute Neuts (auto) 8.6 H Absolute Lymphs (auto) 1.50 Nucleated RBC % 0 Sodium 138 Potassium 4.2 Chloride 105 Carbon Dioxide 30.0 Anion Gap 3 L BUN 10 Creatinine 1.02 Estim Creat Clear Calc 56.08 Est GFR (MDRD) Af Amer 93 Est GFR (MDRD) Non-Af 77 BUN/Creatinine Ratio 9.8 L Glucose 108 H Calcium 8.7 Total Bilirubin 0.70 AST 18 ALT 19 Alkaline Phosphatase 70 Total Protein 7.2 Albumin 3.5 Globulin 3.7 Albumin/Globulin Ratio 0.9 Radiography Chest X-Ray - ED: 2 View, Read by ED Physician, Read by Radiologist and No Acute Disease Diagnostic Testing: Clinical Impression(s) from Imaging Studies Chest X-Ray 06/01/22 08:40 IMPRESSION: Hyperinflation. The lungs are clear. Electronically Signed: Ghanshyam Merchant MD at 8:51 EST , Discharge Plan Triage Chief Complaint: Shortness of Breath ED Provider: Issac Knight Dx/Rx/DC Orders Clinical Impression: Viral upper respiratory tract infection, COPD (chronic obstructive pulmonary disease) Instructions: ED COPD Flare, ED URI, Viral, No Abx (Adult) Prescriptions: No Action albuterol sulfate 90 mcg/actuation HFA aerosol inhaler 2 puff inhalation Q6H PRN (Reason: shortness of breath or wheezing) Qty: 8.5 0RF Primary Care Provider: Darlyn Greenwood Referrals: Darlyn Greenwood MD [Primary Care Provider] - 5-7 Days Disposition Disposition: Home, Self Care
[2022-06-01 08:23] LABS: Absolute Neutrophil Count 8.6 X10^3/uL (2.0-7.7); Basophil# 0.03 X10^3/uL; Basophil% 0.3 % (0-1); Eosinophils% 1.8 % (0-5); Hemoglobin 14.1 g/dL (13.0-16.5); Lymphocyte % 13.7 % (19-41); Mean Corp Hgb Conc 33.6 g/dL (32-36); Mean Corpuscular Hgb 30.5 pg (27.0-32.0); Mean Corpuscular Volume 90.9 fL (80-94); Monocyte# 0.59 X10^3/uL; Monocyte% 5.4 % (0-10); NRBC Flagged by Analyzer 0 % (0-5); Neutrophil # 8.63 X10^3/uL (2.7-7.7); Neutrophil % 78.5 % (47-70); Platelet Count 242 K/mm3 (150-450); RBC Distribution Width CV 13.4 % (11.6-14.6); Red Blood Count 4.62 M/mm3 (4.6-6.2)
[2022-06-01] MEDS: Ipratropium/Albuterol Sulfate 3 ML AMPUL.NEB INHALATION (08:28)
[2022-06-01 08:31] VITALS: PULSE 82; RESP 18; O2SAT 99
[2022-06-01 08:38] LABS: ALB/GLOB Ratio 0.9 RATIO (0.9-2.4); AST(SGOT) 18 U/L (15-37); Alanine Aminotransfer ALT/SGPT 19 U/L (16-61); Albumin, Serum 3.5 g/dL (3.2-5.0); Alkaline Phosphatase 70 U/L (45-117); Anion Gap 3 (5-15); BUN 10 mg/dL (7-18); BUN/Creat Ratio 9.8 RATIO (10-20); Calcium,Total 8.7 mg/dL (8.5-10.1); Chloride 105 mmol/L (98-107); Creatinine, Serum 1.02 mg/dL (0.70-1.30); EST Glomerular Filtration Rate 77 mL/min (>60); Est Glom Filt Rate - Afr Amer 93 mL/min (>60); Estimated Creatinine Clearance 56.08 ml/min; Globulin 3.7 g/dL (2.2-4.2); Glucose 108 mg/dL (74-106); Potassium 4.2 mmol/L (3.5-5.1); Protein, Total 7.2 g/dL (6.4-8.2); Sodium Level 138 mmol/L (136-145)
--- NOTE | 2022-06-01 08:40 | RAD_ITS ---
STUDY: X-RAY CHEST REASON FOR EXAM: Male, 71 years old. Dyspnea TECHNIQUE: PA and lateral views of the chest. COMPARISON: Comparison is made with prior study dated 11/25/2021. FINDINGS: There is hyperinflation of the lungs consistent with chronic obstructive lung disease (COPD). The previously seen infiltrate in the right lower lobe has cleared. There is no demonstrated pleural abnormality. Normal size heart. Normal mediastinum and radha. Normal visualized pulmonary arteries. There is atherosclerotic tortuosity of the aortic arch and descending thoracic aorta. There are diffuse degenerative changes of the visualized thoracic spine. There is degenerative osteoarthritis of the bilateral shoulders. There is no demonstrated abnormality of the visualized soft tissue structures of the upper abdomen. RAD/Chest PA and Lateral IMPRESSION: Hyperinflation. The lungs are clear. Electronically Signed: Ghanshyam Merchant MD at 8:51 EST ,
== END 2022-06-01 10:04 | disposition home or self-care (01) ==
PROVIDERS: Emergency Provider Emergency Medicine; PCP Internal Medicine; Visit Provider Emergency Medicine
DX: J02.9 Acute pharyngitis, unspecified (principal); J44.9 Chronic obstructive pulmonary disease, unspecified; E78.5 Hyperlipidemia, unspecified; Z87.891 Personal history of nicotine dependence; R06.02 Shortness of breath
CPT/HCPCS: 71046; 80053; 85025; 87428; 94640; 99252; 99283; A4216; G0463

== ENCOUNTER 2024-01-17 14:10 | Emergency (ER) | payer MEDICARE, OTHER, SELFPAY ==
[2024-01-17] VITALS (7 sets, daily range): BP systolic 115–136; BP diastolic 74–98; PULSE 63–90; RESP 12–25; TEMP 36.8–37.2; O2SAT 94–98; BMI 19.5
--- NOTE | 2024-01-17 14:56 | EKG12_ITS ---
Test Reason : CP Blood Pressure : / mmHG Vent. Rate : 074 BPM Atrial Rate : 074 BPM P-R Int : 162 ms QRS Dur : 082 ms QT Int : 394 ms P-R-T Axes : 068 -38 063 degrees QTc Int : 437 ms Sinus rhythm with Premature atrial complexes Left axis deviation Abnormal ECG Confirmed by SANJUANA LESLIE ([id number]), news assignment editor LUKAS RUIZ ([id number]) on 01/21/2024 8:24:58 AM Referred By: Confirmed By:SANJUANA LESLIE
--- NOTE | 2024-01-17 15:00 | RAD_ITS ---
STUDY: X-RAY CHEST REASON FOR EXAM: Male, 73 years old. Chest pain TECHNIQUE: Single AP portable view of the chest. COMPARISON: Comparison is made with prior study dated June 01, 2012. FINDINGS: EKG electrodes are seen. Hyperinflation. The lungs are clear. There is no demonstrated pleural abnormality. Normal size heart. Normal mediastinum and radha. Normal visualized pulmonary arteries. There is atherosclerotic tortuosity of the aortic arch and descending thoracic aorta. Normal visualized thoracic spine. Normal visualized ribs, clavicles, and shoulders. There is no demonstrated abnormality of the visualized soft tissue structures of the upper abdomen. RAD/Chest 1 View (Portable) IMPRESSION: Hyperinflation. The lungs are clear. Electronically Signed: Ghanshyam Merchant MD at 15:11 EDT ,
[2024-01-17 15:08] LABS: Absolute Lymphocyte Count 1.43 X10^3/uL (0.83-4.51); Basophil# 0.02 X10^3/uL; Basophil% 0.3 % (0-1); Eosinophils% 1.6 % (0-5); Hematocrit 44.2 % (40-54); Hemoglobin 14.8 g/dL (13.0-16.5); Lymphocyte # 1.43 X10^3/ul (0.83-4.51); Lymphocyte % 23.3 % (19-41); Mean Corp Hgb Conc 33.5 g/dL (32-36); Mean Corpuscular Hgb 30.3 pg (27.0-32.0); Mean Corpuscular Volume 90.6 fL (80-94); Mean Platelet Vol. 10.4 fl (6.2-12.0); Monocyte# 0.61 X10^3/uL; NRBC Flagged by Analyzer 0 % (0-5); Neutrophil # 3.95 X10^3/uL (2.7-7.7); Neutrophil % 64.5 % (47-70); Platelet Count 180 K/mm3 (150-450); RBC Distribution Width CV 13.2 % (11.6-14.6); RBC Distribution Width SD 44.6 fl (35.1-43.9); Red Blood Count 4.88 M/mm3 (4.6-6.2); White Blood Count 6.1 K/mm3 (4.4-11.0)
[2024-01-17 15:24] LABS: Anion Gap 3 (5-15); BUN 14 mg/dL (7-18); BUN/Creat Ratio 14.2 RATIO (10-20); Chloride 102 mmol/L (98-107); Creatinine, Serum 0.99 mg/dL (0.70-1.30); EST Glomerular Filtration Rate 79 mL/min (>60); Est Glom Filt Rate - Afr Amer 96 mL/min (>60); Glucose 100 mg/dL (74-106); Potassium 4.2 mmol/L (3.5-5.1); Sodium Level 135 mmol/L (136-145); Troponin-I HS (w/2H Reflex) 4 pg/mL (3.0-78.0)
--- NOTE | 2024-01-17 15:28 | EDS_ITS ---
HPI History of Present Illness Chief Complaint: Chest Pain Detail of Chief Complaint: Chest pain and shortness of breath Informant: patient Narrative Narrative: Patient presents the emergency department with complaint of not feeling well x 3 days. Patient states that yesterday he developed a fever. He has been coughing. He has been having headaches. Yesterday developed some chest discomfort that radiated through to his back. Patient unsure about sick contacts. He was seen by his primary care physician today and referred to the ER for evaluation. Has have history of pneumonia in the past. He is bringing up some sputum as yellow. Patient does vape. Does not drink alcohol and denies any illicit drug use. Patient denies recent travel or surgery. No history of PE or DVT. [facility] Medical History (Updated 01/17/24 @ 18:[address] Wojciech Lyman, DO) Hyperlipidemia Home Medications ?Medication ?Instructions ?Recorded ?Last Taken ?Type albuterol sulfate 90 mcg/actuation 2 puff inhalation Q6H PRN 11/27/21 Unknown Rx aerosol inhaler shortness of breath or wheezing #8.5 grams Allergy/AdvReac Type Severity Reaction Status Date / Time No Known Allergies Allergy Verified 01/17/24 14:10 Family History (Updated 11/25/21 @ 16:[address] Sofia Preciado MD) Mother No problems noted. Father Heart disease Surgical History Hx of shoulder surgery Social History (Updated 06/01/22 @ 08:[address] Issac Knight DO) household members: family Smoking Status: Former smoker alcohol intake: never substance use type: does not use ROS ROS ED Review of Systems ROS Unobtainable: other Constitutional Constitutional ED: Reports fever(s) and lethargy; Denies chills, sweats or weight loss Eyes Eyes: Denies blurry vision, change in vision or diplopia ENT ENT ED: Denies rhinorrhea or sore throat Cardiovascular Cardiovascular: Reports chest pain; Denies orthopnea or racing heartbeat Respiratory/Chest Respiratory/Chest: Reports cough, dyspnea and dyspnea on exertion; Denies orthopnea or sputum Gastrointestinal Gastrointestinal: Denies abdominal pain, diarrhea, nausea or vomiting Genitourinary Genitourinary ED: Denies dysuria, hematuria or urinary frequency Musculoskeletal Musculoskeletal: Reports myalgias; Denies arthralgias, back pain or neck pain Integumentary Denies abscess, Abrasions or rash Neurologic Neurologic: Reports headache(s); Denies weakness Psychiatric Psychiatric: Denies anxiety, depression or suicidal thoughts Endocrine Endocrinology: Denies polydipsia, polyphagia or polyuria Hematologic/Lymphatic Hematologic/Lymphatic: Denies easy bleeding, easy bruising or lymphadenopathy Allergic/Immunologic Allergic/Immunologic ED: Denies mouth swelling, tongue swelling or urticaria EXAM Physical Exam Const Vital Signs: 01/17/24 14:10 01/17/24 14:10 01/17/24 14:48 Temperature 99 F 99 F Temperature Source Temporal Temporal Pulse Rate 90 90 Respiratory Rate 25 H 25 H Respiratory Effort Short of Breath Blood Pressure 115/98 H 115/98 H Blood Pressure Mean 103 103 Pulse Ox 98 98 Oxygen Delivery Method Room Air 01/17/24 14:59 01/17/24 15:12 Temperature 98.5 F Temperature Source Oral Pulse Rate 70 Respiratory Rate 18 Respiratory Effort Blood Pressure 117/79 Blood Pressure Mean 91 Pulse Ox 94 95 Oxygen Delivery Method Room Air Room Air Positive well nourished and well developed General Appearance ED: well developed and NAD HEENT Reports TM's clear and moist mucous membranes normocephalic and atraumatic; Negative for trauma or tenderness Tympanic Membrane ED: Yes TM's clear Eyes PERRL and EOMs intact bilaterally General Eye ED: Negative for pale conjunctiva or scleral icterus Neck no lymphadenopathy, supple and no JVD General: Negative for tenderness Chest Wall inspection of chest normal and palpation of chest normal Chest: Negative for tenderness Resp normal respiratory effort and clear to auscultation bilaterally Effort and Inspection: Negative for respiratory distress or pain with movement Auscultation: Negative for rhonchi, wheezes or diminished lung sounds Cardio regular rate, regular rhythm, S1 normal heart sound, S2 normal heart sound and no murmurs Peripheral Pulses: pulses 2+ throughout GI normal to inspection, nondistended, normoactive bowel sounds, soft to palpation, non-tender, non-distended and no masses Back/Spine no CVA tenderness and no thoracic nor lumbar tenderness Extremity normal to inspection General Extremety ED: Negative for edema General Extremity: Negative for edema Neuro oriented x3, CN's II-XII intact bilaterally, no sensory deficits noted and gait normal Sensorium / Orientation: awake, alert, oriented to person, oriented to place and oriented to time Motor Exam: strength 5/5 throughout and strength abnormal Psych mental status grossly normal Skin no rashes or lesions noted and no wounds MDM MDM MDM Narrative Medical decision making narrative: Patient presents with chest pain and fever and cough. The differential would be infectious etiology such as pneumonia or viral infection. Also the differential would be acute coronary syndrome or PE. IV line established. EKG obtained showed sinus rhythm with rate of 74 bpm with occasional PACs otherwise no acute changes. CBC with differential, 6.1 with hemoglobin 14.8 and platelet count of 180. Chemistries unremarkable. Troponin was normal at 4. Delta troponin also normal. 1 view chest x-ray obtained showed hyperinflation but no infiltrate or acute process. D-dimer was normal. COVID flu and RSV testing was undertaken and he was positive for COVID-19. At this point discussed treating patient with Paxlovid however he states he had COVID twice before and he had done fine getting through it. He does not want to do the Paxlovid. On repeat exam patient is doing well and feels markedly improved. At this point we will discharge to home. Suspect symptoms all likely related to COVID-19. Will write him for off work for tomorrow. Advised to return if increasing shortness of breath or condition worsen anyway. Lab Data Attestation: I reviewed the patient's lab results. Labs: Laboratory Results - last 24 hr 01/17/24 14:29 WBC 6.1 RBC 4.88 Hgb 14.8 Hct 44.2 MCV 90.6 MCH 30.3 MCHC 33.5 RDW Std Deviation 44.6 H RDW Coeff of Kylee 13.2 Plt Count 180 MPV 10.4 Immature Gran % (Auto) 0.300 Neut % (Auto) 64.5 Lymph % (Auto) 23.3 [place] % (Auto) 10.0 Eos % (Auto) 1.6 Baso % (Auto) 0.3 Absolute Neuts (auto) 4.0 Absolute Lymphs (auto) 1.43 Nucleated RBC % 0 Sodium 135 L Potassium 4.2 Chloride 102 Carbon Dioxide 30.0 Anion Gap 3 L BUN 14 Creatinine 0.99 Estim Creat Clear Calc 53.90 Est GFR (MDRD) Af Amer 96 Est GFR (MDRD) Non-Af 79 BUN/Creatinine Ratio 14.2 Glucose 100 Calcium 9.0 Troponin I High Sens 4 Radiography Diagnostic Testing: Clinical Impression(s) from Imaging Studies Chest X-Ray 01/17/24 15:00 IMPRESSION: Hyperinflation. The lungs are clear. Electronically Signed: Ghanshyam Merchant MD at 15:11 EDT , 1 view chest x-ray obtained interpreted by myself as no evidence of infiltrate or pneumothorax or acute disease process. Radiology in agreement. EKG Initial EKG: Attestation: I personally reviewed and interpreted this EKG as follows: Comments: Sinus rhythm with ventricular rate of 74 bpm with PACs Discharge Plan Triage Chief Complaint: Chest Pain ED Provider: Wojciech Lyman Dx/Rx/DC Orders Clinical Impression: Chest pain, COVID-19 Instructions: Caring for Someone Who Has COVID-19, ED Chest Pain, Uncertain Cause Prescriptions: No Action albuterol sulfate 90 mcg/actuation HFA aerosol inhaler 2 puff inhalation Q6H PRN (Reason: shortness of breath or wheezing) Qty: 8.5 0RF Primary Care Provider: Darlyn Greenwood Referrals: Darlyn Greenwood MD [Primary Care Provider] - 5-7 Days Print Language: Ivorian Disposition Disposition: Home, Self Care
[2024-01-17] MEDS: 0.9% Normal Saline (1000mL) 1,000 ML 150 ML IV (15:50)
[2024-01-17 16:13] LABS: D-Dimer Quantitative (DVT/PE) < 0.27 FEU/ug/m (0.27-0.49)
[2024-01-17 17:02] LABS: Reflex Troponin-HS? (from REC) Y
[2024-01-17 17:25] LABS: Troponin-I HS 6 pg/mL (3.0-78.0)
== END 2024-01-17 18:19 | disposition home or self-care (01) ==
PROVIDERS: Emergency Provider Emergency Medicine; PCP Internal Medicine; Visit Provider Emergency Medicine
DX: U07.1 COVID-19 (principal); E78.5 Hyperlipidemia, unspecified; Z87.891 Personal history of nicotine dependence; R51.9 Headache, unspecified; R07.9 Chest pain, unspecified
CPT/HCPCS: 71045; 80048; 84484; 85025; 85379; 87040; 87631; 93005; 96360; 96361; 99284; J7030; A4216